=== PATIENT | female | born 1975 | race Asian ===

== ENCOUNTER 2018-06-07 04:58 | Day surgery (SDC) | payer BC ==
[2018-06-02 12:51] VITALS: BMI 37.2
[2018-06-07] MEDS ORDERED: oxyCODONE HCL 5 MG TABLET PO PRN (10:08)
[2018-06-07] MEDS ORDERED: ONDANSETRON 4 MG/2 ML VIAL IVPUSH PRN (10:08)
[2018-06-07] MEDS ORDERED: MIDAZOLAM HCL 2 MG/2 ML SINGLE DOSE VIAL ONE (10:39)
[2018-06-07] MEDS ORDERED: ceFAZolin SODIUM 1 GM VIAL IVPB ONE (10:40)
--- NOTE | 2018-06-07 10:54 | HP ---
History & Physical Update - History History: No Change Currently as noted:: Obesity, menometrorrhagia - Physical Physical: No Change - Assessment Assessment: No Change - Plan Plan: No Change Currently as noted:: Hysteroscopy, D&C
[2018-06-07] MEDS ORDERED: DESFLURANE GAS 240 ML BOTTLE IH ONE (11:24)
[2018-06-07] MEDS ORDERED: LACTATED RINGERS SOLUTION 1,000 ML IV SCH (11:30)
--- NOTE | 2018-06-07 12:27 | OP ---
Operative Note - Note: Operative Date: 06/07/18 Pre-Operative Diagnosis: Menometrorrhagia Operation: Hysteroscopy, D&C Findings: Uterine bleeding. Small uterine cavity with a polyp and disorganized endometrium Post-Operative Diagnosis: Same as Pre-op Surgeon: Wei De Guzman Anesthesiologist/ORE FIELDER: Stan Wolf Anesthesia: General Specimens Removed: Endometrial curettings, endometrial polyp Estimated Blood Loss (mls): 20 Blood Volume Replaced (mls): 0 Fluid Volume Replaced (mls): 200 Operative Report Dictated: Yes
[2018-06-07] MEDS ORDERED: oxyCODONE HCL 5 MG TABLET ONE (12:47)
[2018-06-07 13:23] VITALS: TEMP 97.6
[2018-06-07 14:53] VITALS: BP 127/79; PULSE 73
--- NOTE | 2018-06-07 19:39 | OP ---
DATE OF OPERATION: 06/07/2018 PREOPERATIVE DIAGNOSES: 1. Menometrorrhagia. 2. Obesity. POSTOPERATIVE DIAGNOSES: 1. Menometrorrhagia. 2. Obesity. 3. Uterine polyp. PROCEDURE: Hysteroscopy, dilatation and curettage, excision of uterine polyp. SURGEON: Wei De Guzman MD ANESTHESIOLOGIST: Stan Wolf MD ANESTHESIA: General. COMPLICATIONS: None. ESTIMATED BLOOD LOSS: 20 mL INTRAVENOUS FLUIDS: 200 mL PATHOLOGY: Endometrial curettings and uterine polyp. FINDINGS: Examination under anesthesia revealed a small uterus with no pelvic or adnexal masses. Hysteroscopy revealed a small uterine cavity with blood clots and disorganized endometrium. A uterine polyp was also noted. DESCRIPTION OF PROCEDURE: The patient was met preoperatively. Risks, benefits, and alternatives of surgery were discussed in details. All questions were answered. The patient was brought to the OR with the IV running. She was placed on the surgical table in a supine position. The general anesthesia was achieved without difficulty. The patient was then placed in a dorsal lithotomy position. She was prepped and draped in the usual sterile fashion. A timeout was conducted as per standard protocol. The cervix was visualized using a weighted speculum. The cervix was grasped with a single-tooth tenaculum. Active uterine bleeding was noted from the cervical os. The cervix did not need to be dilated. A diagnostic hysteroscope was gently introduced through the cervical os into the endometrial cavity with the findings as described above. The hysteroscope was then removed, and uterine curettage was performed. The tissue was sent to Pathology. The hysteroscope was then introduced into the uterine cavity 1 more time. A persistent uterine polyp was then observed. The hysteroscope was removed and polyp forceps used to excise the polyp. The tissue was sent to Pathology for examination. Once again, the hysteroscope was introduced into the uterine cavity. The cavity appeared to be within normal limits. No bleeding was noted. The hysteroscope was removed. Sponge, lap, and needle counts were correct. Good hemostasis was confirmed. The patient was then returned to supine position and transferred to recovery room in stable condition and awake. Amanda [id number]
--- NOTE | 2018-06-08 17:40 | PATH ---
Surgical Pathology Report Patient Name: DOROTHY TORREZ [facility]. Rec. #: [id number] /Age/Gender: 1975 (Age: 42) / F Account: [id number] Location: [facility] Taken: 06/07/2018 Received: 06/07/2018 Reported: 06/08/2018 Physicians: Wei De Guzman M.D. Specimen(s) Received A: ENDOMETRIAL CURETTINGS B: ENDOMETRIAL POLYPS Clinical History Menometrorrhagia Final Diagnosis A. ENDOMETRIAL CURETTINGS, DILATION AND CURETTAGE: FRAGMENTS OF ENDOMETRIAL AND ENDOCERVICAL POLYP, PROLIFERATIVE ENDOMETRIUM ,AND BENIGN CERVICAL TISSUE. B. ENDOMETRIAL POLYP, DILATION AND CURETTAGE: FRAGMENTS OF ENDOMETRIAL POLYP. Electronically Signed Nayana Velasquez M.D. Gross Description A. Received in formalin labeled "endometrial curettings," is a 3.0 x 2.6 x 0.3 cm aggregate of russell-red soft tissue fragments admixed with blood clot. The formalin is filtered and the specimen is entirely submitted in 2 cassettes. B. Received in formalin labeled "endometrial polyps," are 2 russell-pink soft tissue fragments admixed with blood clot. The fragments measures 0.5 and 0.6 cm in greatest dimension. The specimen is submitted in toto in one cassette. 06/07/201806/07/2018
== END 2018-06-07 14:30 | disposition home or self-care (01) ==
LOC: JASU-SURG 04:58
PROVIDERS: ATTEND Obstetrics & Gynecology
PROC: 0UB98ZX Excision of Uterus, Via Natural or Artificial Opening Endoscopic, Diagnostic (ICD-10-PCS; principal; 2018-06-07 10:30)
PROC: 0UDB7ZX Extraction of Endometrium, Via Natural or Artificial Opening, Diagnostic (ICD-10-PCS; 2018-06-07 10:30)
DX: N84.0 Polyp of corpus uteri (principal); N92.1 Excessive and frequent menstruation with irregular cycle; E66.9 Obesity, unspecified; E78.5 Hyperlipidemia, unspecified; R73.01 Impaired fasting glucose; Z68.37 Body mass index [BMI] 37.0-37.9, adult
CPT/HCPCS: 36415; 84703; 86850; 86900; 86901; 88305-TC; 94760

== ENCOUNTER 2019-01-13 20:01 | Emergency (ER) | payer OTHER, BC ==
[2019-01-13] MEDS ORDERED: DIPHTH,PERTUSS(ACELL),TET 0.5 ML DISP.SYRIN IM ONE ×2 (20:06→20:22)
[2019-01-13 20:11] VITALS: BP 150/78; PULSE 89; TEMP 97.6; BMI 34.0
--- NOTE | 2019-01-13 20:11 | PDOC ---
Rapid Medical Evaluation Chief Complaint: Non EmpBld/Body Flud Exposure Time Seen by Provider: 01/13/19 20:05 Medical Evaluation: Allergies Allergy/AdvReac Type Severity Reaction Status Date / Time No Known Drug Allergies Allergy Verified 06/02/18 12:40 01/13/19 20:07 The patient presents with a chief complaint of: needlestick while drawing blood from a healthy vaccinated dog. Pt unknown last tetanus, washed w/ soap and water I have performed a brief in-person evaluation of this patient Pertinent physical exam findings: rt 2nd digit w/ pinpoint mar I have ordered the following: tdap The patient will proceed to the ED for further evaluation. Discharge Disposition - Diagnosis Needle stick injury of finger of right hand Qualifiers: Encounter type: initial encounter Qualified Code(s): S61.239A - Puncture wound without foreign body of unspecified finger without damage to nail, initial encounter - Discharge Dispostion Disposition: HOME - Referrals Referrals: Aura Rosario MD [Primary Care Provider] - - Patient Instructions Printed Discharge Instructions: How to Handle Body Fluid Exposure -- Non- Healthcare Worker (At Home, [facility] Additional Instructions: please follow up with your doctor for a wound check. - Post Discharge Activity Work/School Note: Back to Work
--- NOTE | 2019-01-13 20:40 | PDOC ---
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 As per patient dog was there for a well visit and vaccines are up-to-date. Patient reports that she is here for the needle stick area to be looked at and a tetanus vaccine. Patient reports needlestick injury to occur at 1:45 PM. Patient washed her hands with soap and water and purged some blood out of the right index finger. Past History - Past Medical History Allergies/Adverse Reactions: Allergies Allergy/AdvReac Type Severity Reaction Status Date / Time No Known Drug Allergies Allergy Verified 06/02/18 12:40 Home Medications: Ambulatory Orders Atorvastatin Ca [Lipitor] 10 mg PO HS 06/02/18 metFORMIN HCL [Metformin HCl ER] 500 mg PO DAILY 06/02/18 metroNIDAZOLE [Flagyl -] 500 mg PO BID #14 tablet 06/07/18 Diabetes: Yes (pre diabetes) Hypercholesterolemia: Yes - Surgical History Abdominal Surgery: Yes (pre cancerous masses removed) - Immunization History Td Vaccination: No Immunization Up to Date: No - Suicide/Smoking/Psychosocial Hx Smoking Status: No Smoking History: Never smoked Have you smoked in the past 12 months: No Number of Cigarettes Smoked Daily: 0 Information on smoking cessation initiated: No Hx Alcohol Use: No Drug/Substance Use Hx: No Substance Use Type: None Hx Substance Use Treatment: No Review of Systems - Review of Systems Able to Perform ROS?: Yes Is the patient limited Bhutanese proficient: No Constitutional: Yes: Symptoms Reported *Physical Exam - Vital Signs Last Vital Signs Temp Pulse Resp BP Pulse Ox 97.6 F 89 18 150/78 100 01/13/19 20:05 01/13/19 20:05 01/13/19 20:05 01/13/19 20:05 01/13/19 20:05 - Physical Exam General Appearance: Yes: Appropriately Dressed Extremity: positive: Other (puncture wound to the right index finger) Post Exposure - ED Protocol - Exposure Treatment Washing/Decontamination: Soap/Water Is PEP indicated?: No Prophylaxis for HIV discussed?: No Prophylaxis given?: No Prophylaxis refused?: No Additional Treatment:: DT - Referrals Employee Referred to Employee Health:: Yes Progress Note - Progress Note Progress Note: A: needle stick injury P: tetanus *DC/Admit/Observation/Transfer Diagnosis at time of Disposition: Needle stick injury of finger of right hand Qualifiers: Encounter type: initial encounter Qualified Code(s): S61.239A - Puncture wound without foreign body of unspecified finger without damage to nail, initial encounter; W27.3XXA - Contact with needle (sewing), initial encounter - Discharge Dispostion Disposition: HOME - Referrals - Patient Instructions Printed Discharge Instructions: How to Handle Body Fluid Exposure -- Non- Healthcare Worker (At Home, [facility] Additional Instructions: please follow up with your doctor for a wound check. - Post Discharge Activity Forms/Work/School Notes: Back to Work
== END 2019-01-13 20:58 | disposition home or self-care (01) ==
LOC: JERFT 20:01
PROC: 3E0234Z Introduction of Serum, Toxoid and Vaccine into Muscle, Percutaneous Approach (ICD-10-PCS; principal; 2019-01-13)
DX: S61.230A Puncture wound without foreign body of right index finger without damage to nail, initial encounter (principal); W46.1XXA Contact with contaminated hypodermic needle, initial encounter; Y93.K9 Activity, other involving animal care; Y92.538 Other ambulatory health services establishments as the place of occurrence of the external cause; Y99.0 Civilian activity done for income or pay
CPT/HCPCS: 90715; 99281-25

== ENCOUNTER 2019-08-31 05:14 | Day surgery (SDC) | payer BC ==
[2019-08-22 15:04] VITALS: BMI 37.5
[2019-08-31] MEDS ORDERED: LIDOCAINE HCL/PF 2% SDV 5ML VIAL ONE (13:53)
[2019-08-31] MEDS ORDERED: PROPOFOL 20 ML ONE (13:54)
[2019-08-31] MEDS ORDERED: MIDAZOLAM HCL 2 MG/2 ML SINGLE DOSE VIAL ONE ×2 (13:54→14:13)
[2019-08-31] MEDS ORDERED: ONDANSETRON 4 MG/2 ML VIAL IVPUSH PRN ×2 (14:00→15:05)
[2019-08-31] MEDS ORDERED: LACTATED RINGERS SOLUTION 1,000 ML IV SCH (14:00)
[2019-08-31] MEDS ORDERED: oxyCODONE HCL 5 MG TABLET PO PRN ×2 (14:00→15:05)
[2019-08-31] MEDS ORDERED: IBUPROFEN 800 MG/8 ML IJ IVPB PRN (14:00)
[2019-08-31] MEDS ORDERED: ACETAMINOPHEN 500 MG TABLET (FP) PO PRN (14:00)
[2019-08-31] MEDS ORDERED: GLYCOPYRROLATE 0.2 MG/1 ML VIAL ONE (14:04)
--- NOTE | 2019-08-31 14:31 | HP ---
History & Physical Update - History History: No Change - Physical Physical: No Change - Assessment Assessment: No Change - Plan Plan: No Change
[2019-08-31] MEDS ORDERED: ceFAZolin SODIUM 1 GM VIAL IVPB ONE ×2 (14:35→14:45)
[2019-08-31] MEDS ORDERED: ONDANSETRON 4 MG/2 ML VIAL ONE (14:58)
[2019-08-31] MEDS ORDERED: PROMETHAZINE HCL 25 MG/1 ML VIAL IVPUSH PRN (15:05)
--- NOTE | 2019-08-31 15:37 | OP ---
Operative Note - Note: Operative Date: 08/31/19 Pre-Operative Diagnosis: Menometrorrhagia Operation: Hysteroscopy, D&C Findings: Normal endometrial cavity Post-Operative Diagnosis: Same as Pre-op Surgeon: Wei De Guzman Anesthesiologist/DIVISION SUPERVISOR: Yoly Fox Anesthesia: General Specimens Removed: Endometrial curettings Estimated Blood Loss (mls): 5 Blood Volume Replaced (mls): 0 Fluid Volume Replaced (mls): 500 Operative Report Dictated: Yes
[2019-08-31 17:28] VITALS: PULSE 90
[2019-08-31 18:56] VITALS: BP 139/72; TEMP 97.6
--- NOTE | 2019-09-02 17:13 | PATH ---
Surgical Pathology Report Patient Name: DOROTHY TORREZ [facility]. Rec. #: [id number] /Age/Gender: 1975 (Age: 43) / F Account: [id number] Location: [facility] Taken: 08/31/2019 Received: 09/01/2019 Reported: 09/02/2019 Physicians: Wei De Guzman M.D. Specimen(s) Received ENDOMETRIAL CURETTINGS Clinical History Menometrorrhagia Final Diagnosis ENDOMETRIAL CURETTINGS, DILATATION AND CURETTAGE: FRAGMENTS OF PROLIFERATIVE ENDOMETRIUM AND SCANT BENIGN CERVICAL TISSUE ADMIXED WITH BLOOD. Electronically Signed Nayana Velasquez M.D. Gross Description Received in formalin labeled "endometrial curettings," is a 3.5 x 2.5 x 0.3 cm aggregate of red-brown soft tissue fragments admixed with blood clot. The formalin is filtered and the specimen is entirely submitted in 2 cassettes. /08/31/2019 saudi/08/31/2019
--- NOTE | 2019-09-05 15:55 | OP ---
DATE OF OPERATION: 08/31/2019 PREOPERATIVE DIAGNOSIS: Menometrorrhagia. POSTOPERATIVE DIAGNOSIS: Menometrorrhagia. PROCEDURE: Hysteroscopy, dilation and curettage. SURGEON: Wei De Guzman MD ANESTHESIOLOGIST: Yoly Fox MD ANESTHESIA: General. COMPLICATIONS: None. ESTIMATED BLOOD LOSS: 5 mL. IV FLUIDS: 500 mL. PATHOLOGY: Endometrial curettings. FINDINGS: Examination under anesthesia revealed a small mobile uterus with no pelvic or adnexal masses. Hysteroscopy revealed a normal uterine cavity with no lesions. Uncomplicated procedure. DESCRIPTION OF SURGERY: The patient was met preoperatively. Risks, benefits, alternatives of surgery were discussed in detail. All questions were answered. The consent form was reviewed and discussed. The patient verbalized her understanding, the consent form was signed, and the patient requested to proceed with the surgery. She was brought to the OR with the IV running. The patient was placed in the surgical table in the lying position. General anesthesia was achieved without difficulty. The patient was then positioned in the dorsal lithotomy position using adjustable Ludwig stirrups. She was examined under anesthesia, with the findings as described above. The patient was prepped and draped in the usual sterile fashion. A timeout was conducted as per standard protocol. A weighted speculum was then introduced inside the vagina. The cervix was grasped with a single-tooth tenaculum. The cervical os was dilated to accommodate a size 17 Saavedra dilator. A diagnostic hysteroscope was introduced inside the uterine cavity, with the findings as described above. Hysteroscope was then removed. The cervical os was dilated to accommodate a size 25 Saavedra dilator. A sharp uterine curettage was then performed and the tissue was sent to Pathology for evaluation. Once this was completed, all of the instruments were removed. Sponge, lap, needle, instrument counts were correct. The patient was then transferred to recovery room in stable condition and awake. Amanda VALENTINE/[id number]
== END 2019-08-31 19:00 | disposition home or self-care (01) ==
LOC: JASU-SURG 05:14
PROVIDERS: ATTEND Obstetrics & Gynecology
PROC: 0UDB7ZX Extraction of Endometrium, Via Natural or Artificial Opening, Diagnostic (ICD-10-PCS; principal; 2019-08-31 14:00)
PROC: 0UJD8ZZ Inspection of Uterus and Cervix, Via Natural or Artificial Opening Endoscopic (ICD-10-PCS; 2019-08-31 14:00)
DX: N92.1 Excessive and frequent menstruation with irregular cycle (principal)
CPT/HCPCS: 82962; 84703; 88305-TC; 94760

== ENCOUNTER 2023-09-24 14:42 | Emergency (ER) | payer BC ==
[2023-09-24 14:53] VITALS: BP 141/79; PULSE 108; RESP 18; TEMP 98; BMI 42.5
[2023-09-24] MEDS ORDERED: SODIUM CHLORIDE 1,000 ML IV STA (15:57)
[2023-09-24] MEDS ORDERED: ASPIRIN 81 MG CHEWABLE TABLETS PO ONE (15:57)
[2023-09-24] MEDS ORDERED: ASPIRIN 81 MG CHEWABLE TABLETS ONE (16:21)
[2023-09-24 17:12] LABS: BASO % 0.6 % (0-2.0); EOS % 1.1 % (0-4.5); HEMATOCRIT 40.8 % (32.4-45.2); HEMOGLOBIN 12.6 GM/dL (10.7-15.3); LYMPH % 22.9 % (8-40); MCH 24.9 pg (25.7-33.7); MEAN CELL VOLUME 80.4 fl (80-96); MEAN PLT VOLUME 9.8 fl (7.5-11.1); MONO % 6.8 % (3.8-10.2); NEUT % 68.6 % (42.8-82.8); PLATELET COUNT 241 10^3/uL (134-434); RBC 5.08 M/mm3 (3.60-5.2); RDW 17.5 % (11.6-15.6)
[2023-09-24 17:16] LABS: EPI CELLS 8 /uL (0-25.1); HYALINE CASTS 0 /uL (0-3.1); PH,URINE 5.5 (5.0-8.0); URINE APPEARANCE CLEAR; URINE BACTERIA 110 /uL (0-1359); URINE BILIRUBIN NEGATIVE (NEGATIVE); URINE COLOR YELLOW; URINE GLUCOSE (UA) NEGATIVE (NEGATIVE); URINE KETONE NEGATIVE (NEGATIVE); URINE LEUK ESTERASE NEGATIVE (NEGATIVE); URINE NITRITE NEGATIVE (NEGATIVE); URINE PROTEIN 1+ (NEGATIVE); URINE WBC 10 /uL (0-25.8)
[2023-09-24 17:18] LABS: HCG,QUALITATIVE URINE Negative
[2023-09-24 17:43] LABS: POTASSIUM 4.6 mmol/L (3.5-5.1)
[2023-09-24 17:45] LABS: ALBUMIN 3.7 g/dl (3.4-5.0); CALCIUM 8.6 mg/dL (8.5-10.1); MAGNESIUM 2.2 mg/dL (1.8-2.4)
[2023-09-24 17:46] LABS: BLOOD UREA NITROGEN 25.6 mg/dL (7-18)
[2023-09-24 17:48] LABS: CREATININE 0.9 mg/dL (0.55-1.3)
[2023-09-24 17:50] LABS: BILIRUBIN,TOTAL 0.5 mg/dL (0.2-1); TOT PROT 7.4 g/dl (6.4-8.2)
[2023-09-24 18:15] LABS: URINE RBC 20.4 /uL (0-23.9)
== END 2023-09-24 18:50 | disposition home or self-care (01) ==
LOC: JER 14:42
PROC: 3E0337Z Introduction of Electrolytic and Water Balance Substance into Peripheral Vein, Percutaneous Approach (ICD-10-PCS; principal; 2023-09-24)
DX: R00.2 Palpitations (principal)
CPT/HCPCS: 36415; 71046-TC-FY; 80053; 81003; 83735; 84443; 84484; 84703; 85025; 93005; 93010; 99285-25

== ENCOUNTER 2024-06-20 04:43 | Day surgery (SDC) | payer OTHER ==
[2024-06-17 10:44] VITALS: BMI 43.2
[2024-06-20] MEDS ORDERED: PROPOFOL 20 ML ONE (16:34)
[2024-06-20] MEDS ORDERED: MIDAZOLAM HCL 2 MG/2 ML SINGLE DOSE VIAL ONE (16:34)
[2024-06-20] MEDS: ceFAZolin SODIUM 1 GM VIAL IVPB ONE (17:26)
[2024-06-20] MEDS ORDERED: ONDANSETRON 4 MG/2 ML VIAL IVPUSH PRN (18:03)
[2024-06-20] MEDS ORDERED: oxyCODONE HCL 5 MG TABLET PO PRN (18:03)
[2024-06-20] MEDS: LACTATED RINGERS SOLUTION 1,000 ML IV SCH (18:27)
[2024-06-20] MEDS: ACETAMINOPHEN 1000 MG/100 ML BAG IVPB ONE (18:27)
[2024-06-20 19:30] VITALS: RESP 18
[2024-06-20 19:57] VITALS: BP 132/60; PULSE 94; TEMP 97.1
== END 2024-06-20 20:10 | disposition home or self-care (01) ==
LOC: JASU-SURG 04:43
PROVIDERS: ATTEND Obstetrics & Gynecology
PROC: 0UDB8ZX Extraction of Endometrium, Via Natural or Artificial Opening Endoscopic, Diagnostic (ICD-10-PCS; 2024-06-20)
PROC: 0UJH8ZZ Inspection of Vagina and Cul-de-sac, Via Natural or Artificial Opening Endoscopic (ICD-10-PCS; principal; 2024-06-20 13:00)
DX: N72 Inflammatory disease of cervix uteri (principal); E66.01 Morbid (severe) obesity due to excess calories
CPT/HCPCS: 81025; 82962; 88305-TC; 94760; J0131

== ENCOUNTER 2024-07-04 18:15 | Emergency (ER) | payer OTHER ==
[2024-07-04 18:31] VITALS: BP 127/83; PULSE 102; RESP 16; TEMP 98.1; BMI 43.2
== END 2024-07-04 21:53 | disposition home or self-care (01) ==
LOC: JER 18:15
DX: L53.9 Erythematous condition, unspecified (principal)
CPT/HCPCS: 74019-TC-FY; 99283-25